=== PATIENT | male | born 1965 | race Caucasian/White ===

== ENCOUNTER 2019-02-06 09:08 | Emergency (ER) | payer OTHER, MEDICAID, MEDICARE ==
[2019-02-06] MEDS: ACETAMINOPHEN 325 MG TAB PO (09:39)
[2019-02-06 09:43] LABS: ADD MAN DIFF? NO
[2019-02-06 09:47] LABS: BASOPHIL # 0.1 10^3/ul (0.0-0.1); BASOPHILS % 0.4 % (0.0-2.0); EOSINOPHILS % 0.2 % (0.0-7.0); HEMATOCRIT 46.8 % (42.0-52.0); HEMOGLOBIN 15.6 g/dl (14.0-18.0); LYMPHOCYTES # 1.1 10^3/ul (0.8-2.9); LYMPHOCYTES % 8.8 % (15.0-51.0); MEAN CORPUSCULAR HEMOGLOBIN 31.8 pg (29.0-33.0); MEAN CORPUSCULAR HGB CONC 33.3 g/dl (32.0-37.0); MEAN CORPUSCULAR VOLUME 95.3 fl (82.0-101.0); MONOCYTE # 1.2 10^3/ul (0.3-0.9); MONOCYTES % 9.9 % (0.0-11.0); NEUTROPHIL # 9.7 10^3/ul (1.6-7.5); NEUTROPHILS % 80.4 % (39.0-77.0); PLATELET COUNT 197 10^3/UL (140-415); RED BLOOD COUNT 4.91 10^6/ul (4.70-6.10); RED CELL DISTRIBUTION WIDTH 12.1 % (11.5-14.5)
[2019-02-06] MEDS: ACETAMINOPHEN 500 MG TAB PO (09:58)
[2019-02-06] MEDS: KETOROLAC 30 MG INJ IV (10:01)
[2019-02-06] MEDS: CEFTRIAXONE 1 GM/50 ML (PMX) 50 ML IVPB (10:01)
[2019-02-06] MEDS: SODIUM CHLORIDE 0.9% 1L BAG IV* (10:03)
[2019-02-06 10:10] LABS: ANION GAP 9 (5-13); BLOOD UREA NITROGEN 11 mg/dl (7-20); CALCIUM 9.9 mg/dl (8.4-10.2); CARBON DIOXIDE 27 mmol/L (21-31); CHLORIDE 99 mmol/L (97-110); Estimated GFR > 60 mL/min (>60); GLUCOSE 110 mg/dl (70-220); POTASSIUM 3.9 mmol/L (3.5-5.1); SODIUM 135 mmol/L (135-144)
[2019-02-06] MEDS: AZITHROMYCIN 500MG/NS (PMX) 250 ML IV (11:11)
[2019-02-06 12:57] LABS: LACTIC ACID 0.8 mmol/L (0.5-2.0)
== END 2019-02-06 13:06 | disposition home or self-care (01) ==
LOC: E/R 09:08
DX: J18.1 Lobar pneumonia, unspecified organism (principal); I10 Essential (primary) hypertension; Z86.73 Personal history of transient ischemic attack (TIA), and cerebral infarction without residual deficits
CPT/HCPCS: 36415; 71045; 80048; 83605; 85025; 87040-91; 93005; 96365; 96366; 96367; 96375; 99285-25